=== PATIENT | female | born 1955 | race Caucasian/White ===

== ENCOUNTER 2023-06-10 14:47 | Emergency (ER) | payer MEDICARE, SELFPAY ==
[2023-06-10 14:56] VITALS: BP 124/86; PULSE 80; RESP 19; TEMP 36.6; O2SAT 98; BMI 26.4
--- NOTE | 2023-06-10 14:58 | ED.GENADULT ---
HPI - General Adult General Chief complaint: General Medical Stated complaint: exposed to bat via house cat Time Seen by Provider: 06/10/23 15:13 Source: patient, RN notes reviewed and old records reviewed Mode of arrival: ambulatory Limitations: no limitations History of Present Illness HPI narrative: 67-year-old female presents for evaluation of potential rabies exposure. Patient reports that her household cat was found playing with a bat. The patient was not bit by any bad and did not come in direct contact with the bat. Her removed the back from the house They are interested in the rabies vaccine This happened today Related Data Allergies Allergy/AdvReac Type Severity Reaction Status Date / Time No Known Allergies Allergy Verified 06/10/23 14:55 Review of Systems Constitutional: Constitutional: Denies chills and Denies fever(s) PMFSH Social History Social History Advance Directives: No Advance Directives Information Provided: No Physical Exam ED Vital Signs: Vital Signs - 24 hr 06/10/23 14:56 Temperature 98 F Pulse Rate 80 Respiratory Rate 19 Blood Pressure 124/86 Pulse Oximetry 98 Oxygen Delivery Method Room Air BMI result Body Mass Index 26.4 Const General: healthy appearing, comfortable, no acute distress, alert and awake Nutritional Appearance: well nourished Orientation/consciousness: patient oriented x3 HENMT Head: Yes normocephalic and Yes atraumatic Resp Effort & Inspection: normal respiratory effort, able to speak in complete sentences and not labored Skin General skin exam: no rashes or lesions noted and elasticity normal Neuro General: patient oriented x3 Cranial nerves: Yes CN's II-XII intact bilaterally and Yes Bilaterally intact EOM present Cognition (Neuro): normal cognition Extrem Other: Moving all extremities well without any obvious deformities Course Course Course Narrative: RME- 67-year-old female presents for evaluation of our cat found a baby bat. She is interested rabies treatment. She denies any obvious bite fernandez and was approach by the bat. Medical Decision Making Medical Decision Making [facility] Narrative: Patient was educated on rabies vaccine series and resources for testing the that if they are able to presented for testing to the [facility] Division of epidemiology and immunology. In the meantime she would like to begin the rabies vaccine series. Differential Diagnosis Differential Diagnoses: The differential diagnosis associated with the presentation includes Rabies exposure Bat exposure Rabies virus Anxiety Discharge Plan Discharge Clinical Impression: At increased risk for exposure to rabies virus Patient Disposition: Home, Self-Care Instructions: Rabies (ED) Additional Instructions: Left you initiated the rabies series today. To complete the series you to return in 3 days, 7 days, and 14 days. In the meantime, you may follow-up with the meds that she is [facility], division of epidemiology and immunology at the resources provided to get the bat tested for rabies to see if you worked really exposed to rabies.
--- OUTSIDE RECORDS SUMMARY | 2023-06-10 15:24 | XMS_ITS | Continuity of Care Document ---
Author Name Unknown Organization [facility] [place] Address [address] [place] [address]- Care Team Providers Care Engineering Drafter Name Role Phone Skip Galindo MD Primary Care Physician Encounter [facility] Date(s): 04/19/21 - 05/19/21 [facility] [address] [place] [address]- Allergies, Adverse Reactions, Alerts Substance Reaction Severity Status Dust Active Mold Active Other Environmental Allergy 1 Active 1seasonal Immunizations Given and Recorded Vaccine Date Status Refusal Reason SARS-CoV-2 (COVID-19) mRNA BNT-162b2 vac 02/01/21 Given SARS-CoV-2 (COVID-19) mRNA BNT-162b2 vac 01/11/21 Given pneumococcal 23-valent vaccine 1 08/25/14 Recorded influenza virus vaccine, inactivated 2 08/09/14 Re corded Typhim (oldterm) 02/26/09 Given Typhim (oldterm) 09/23/05 Given Hepatitis A-Hepatitis B Vaccine 3 02/26/09 Given Hepatitis A-Hepatitis B Vaccine 4 09/23/05 Given Hepatitis A-Hepatitis B Vaccine 5 08/21/05 Given tetanus/diphtheria/pertussis, acel(Tdap) 6 08/14/08 Recorded Yellow Fever Vaccine 08/21/05 Given Poliovirus Vaccine, Inactivated 08/21/05 Given 1Result Comment: [05/16/2016] [facility] 2Result Comment: [05/16/2016] [facility] 3Admin Note: TWIN # 3 4Admin Note: TWIN # 2 5Admin Note: twin # 1 6Result Comment: [05/16/2016] [facility] Medications Cymbalta Capsule By Mouth, 30mg and 60mg tabs. both at night, 0 Refills, Maintenance, 12/06/14 16:15:22 EST Start Date: 12/06/14 Status: Ordered Lamictal Tablet See Instructions, 1 and a half at night, Maintenance, 09/26/13 15:39:37 EST, Instructions Replace Required Details Start Date: 09/26/13 Status: Ordered Lorazepam 0 Refills, Maintenance, 12/06/14 16:14:43 Start Date: 12/06/14 Status: Ordered oxycodone oxycodone, Refills 0, Maintenance, 12/06/14 16:15:28, Compound Start Date: 12/06/14 Status: Ordered Singulair By Mouth, Daily before dinner, 0 Refills, Maintenance, 12/06/14 16:14:27 Start Date: 12/06/14 Status: Ordered Trazodone By Mouth, 0 Refills, Maintenance, 12/06/14 16:15:08 Start Date: 12/06/14 Status: Ordered Vitamin D3 By Mouth, 0 Refills, Maintenance Start Date: 09/26/13 Status: Ordered Problem List Condition Effective Dates Status Health Status Inform ant Depressive disorder(Confirmed) Active Endometriosis (clinical)(Confirmed) Active Gastroesophageal reflux disease(Confirmed) Active Hypercholesterolemia(Confirmed) Active Osteoporosis(Confirmed) Active Social History Social History Type Response Smoking Status Former smoker 1 entered on: 09/26/13 Sex 1quit 1985
--- OUTSIDE RECORDS SUMMARY | 2023-06-10 15:24 | XMS_ITS | Continuity of Care Document ---
Author Name Unknown Organization [facility] [address] Address [address] [place] [address]- Care Team Providers Care Registered Nurse Name Role Phone Skip Galindo MD Primary Care Physician Encounter [facility] [id number] Date(s): 04/29/21 - 05/29/21 [facility] [address] [place] [address]- Attending Physician: AdmEdwin stephenson Admitting Physician: Admtr, ArFidelia Referring Physician: Admtr, Ar8 Allergies, Adverse Reactions, Alerts Substance Reaction Severity [...] Vaccine, Inactivated 08/21/05 Given 1Result Comment: [05/16/2016] [facility] 2Result Comment: [05/16/2016] [facility] 3Admin Note: TWIN # 3 4Admin Note: TWIN # 2 5Admin Note: twin # 1 6Result Comment: [05/16/2016] [facility] Medications Cymbalta Capsule By Mouth, 30mg and [...] smoker 1 entered on: 09/26/13 Sex 1quit 1986
--- OUTSIDE RECORDS SUMMARY | 2023-06-10 15:24 | XMS_ITS | Continuity of Care Document ---
Author Name Unknown Organization [facility] Address [address] [place] [address]- Care Team Providers Care Contact Center Team Lead Name Role Phone Praful OGDEN, Altaf Y Primary Care Physician Unavaila ble Encounter [facility] Date(s): 02/29/20 - 03/30/20 [facility] [address] [place] [address]- [facility] Attending Physician: Edwin Rodriguez Admitting Physician: Edwin Rodriguez Referring Physician: AdmtrEdwin Allergies, Adverse Reactions, Alerts Substance Reaction Severity Status Dust Active Mold Active Other Environmental Allergy 1 Active 1seasonal Immunizations Given and Recorded Vaccine Date Status Refusal Reason pneumococcal 23-valent vaccine 1 08/25/14 Recorded influenza virus vaccine, inactivated 2 08/09/14 Re corded Typhim (oldterm) 02/26/09 Given Typhim (oldterm) 09/23/05 Given Hepatitis A-Hepatitis B Vaccine 3 02/26/09 Given Hepatitis A-Hepatitis B Vaccine 4 09/23/05 Given Hepatitis A-Hepatitis B Vaccine 5 08/21/05 Given tetanus/diphtheria/pertussis, acel(Tdap) 6 08/14/08 Recorded Yellow Fever Vaccine 08/21/05 Given Poliovirus Vaccine, Inactivated 08/21/05 Given 1Result Comment: [05/16/2016] [facility] 2Result Comment: [05/16/2016] [facility] 3Admin Note: TWIN # 3 4Admin Note: TWIN # 2 5Admin Note: twin # 1 6Result Comment: [05/16/2016] [facility] Medications Cymbalta Capsule By Mouth, 0 Refills, Maintenance, 12/06/14 16:15:22 Start Date: 12/06/14 Status: Ordered Lamictal Tablet By Mouth, 2 times a day, Maintenance, 09/26/13 15:39:37 Start Date: 09/26/13 Status: Ordered Lorazepam 0 Refills, Maintenance, 12/06/14 16:14:43 Start Date: 12/06/14 Status: Ordered oxycodone oxycodone, Refills 0, Maintenance, 12/06/14 16:15:28, Compound Start Date: 12/06/14 Status: Ordered Singulair By Mouth, Daily before dinner, 0 Refills, Maintenance, 12/06/14 16:14:27 Start Date: 12/06/14 Status: Ordered Trazodone By Mouth, 0 Refills, Maintenance, 12/06/14 16:15:08 Start Date: 12/06/14 Status: Ordered Vitamin B Complex oral tablet, extended release 1 tablet, By Mouth, Daily, 0 Refills, Maintenance, 08/26/17 11:17:20 Start Date: 08/26/17 Status: Ordered Vitamin D3 By Mouth, 0 Refills, Maintenance Start Date: 09/26/13 Status: Ordered Problem List Condition Effective Dates Status Health Status Inform ant Depressive disorder(Confirmed) Active Endometriosis (clinical)(Confirmed) Active Gastroesophageal reflux disease(Confirmed) Active Hypercholesterolemia(Confirmed) Active Osteoporosis(Confirmed) Active Social History Social History Type Response Smoking Status Former smoker 1 entered on: 09/26/13 Sex 1quit 1985
--- OUTSIDE RECORDS SUMMARY | 2023-06-10 15:24 | XMS_ITS | Continuity of Care Document ---
Author Name Unknown Organization [facility] Address [address] [place] [address]- Care Team Providers Care Kelp Cutter Name Role Phone Praful OGDEN, Ylnikki Y Primary Care Physician Unavaila ble Encounter [facility] Date(s): 12/27/19 - 03/30/20 [facility] [address] [place] [address]- [facility] Attending Physician: Salomon OGDEN, Dee Hightower Allergies, Adverse Reactions, Alerts Substance Reaction Severity [...] Vaccine, Inactivated 08/21/05 Given 1Result Comment: [05/16/2016] [facility] 2Result Comment: [05/16/2016] [facility] 3Admin Note: TWIN # 3 4Admin Note: TWIN # 2 5Admin Note: twin # 1 6Result Comment: [05/16/2016] [facility] Medications Cymbalta Capsule By Mouth, 0 Refills, [...]
[2023-06-10] MEDS: Rabies Vaccine, Human Diploid (Imovax) 1 ML VIAL IM (15:59)
[2023-06-10] MEDS: Rabies Immune Globulin/PF 900 UNIT/3 ML VIAL 1440 UNIT IM (16:00)
== END 2023-06-10 16:24 | disposition home or self-care (01) ==
PROVIDERS: Emergency Provider Emergency Medicine; PCP Internal Medicine
DX: Z20.3 Contact with and (suspected) exposure to rabies (principal)
CPT/HCPCS: 90375; 90471; 90675; 96372; 99282; 99284

== ENCOUNTER 2023-06-13 09:51 | Outpatient (REF) | payer MEDICARE, SELFPAY | END 2023-06-13 09:52 | disposition home or self-care (01) | LOC: HO.MDS 09:51 | PROVIDERS: Visit Provider Physician Assistant | DX: Z20.3 Contact with and (suspected) exposure to rabies (principal) | CPT/HCPCS: 90471; 90675 ==

== ENCOUNTER 2023-06-17 15:01 | Outpatient (REF) | payer MEDICARE, SELFPAY | END 2023-06-17 15:02 | disposition home or self-care (01) | LOC: HO.MDS 15:01 | PROVIDERS: Visit Provider Physician Assistant | DX: Z20.3 Contact with and (suspected) exposure to rabies (principal) | CPT/HCPCS: 90675; 96372 ==

== ENCOUNTER 2023-06-24 15:03 | Outpatient (REF) | payer MEDICARE, SELFPAY | END 2023-06-24 15:04 | disposition home or self-care (01) | LOC: HO.MDS 15:03 | PROVIDERS: Visit Provider Physician Assistant | DX: Z20.3 Contact with and (suspected) exposure to rabies (principal) | CPT/HCPCS: 90471; 90675 ==